=== PATIENT | male | born 1985 | race Caucasian/White ===

== ENCOUNTER 2021-08-08 17:34 | Emergency (ER) | payer OTHER ==
[2021-08-08 18:27] LABS: HEMOGLOBIN 13.1 gm/dl (14.0-17.5); RED BLOOD COUNT 4.32 M/UL (4.20-5.50); WHITE BLOOD COUNT 15.7 K/UL (4.5-11.0)
== END 2021-08-08 20:47 | disposition expired ==
LOC: ER1 17:34 → CDU 19:11 → ER1 19:11
PROVIDERS: Emergency Medicine; Internal Medicine
DX: U07.1 COVID-19 (principal); I46.9 Cardiac arrest, cause unspecified; N17.9 Acute kidney failure, unspecified; E87.2 Acidosis
CPT/HCPCS: 36600; 70450; 71045; 80053; 80307; 81001; 82550; 82553; 82803; 82962; 83605; 83735; 83874; 84484; 85025; 87086; 92950; 93005; 94002; 94664; 96374; 96375; 99285; G0480; J0171; J2543; J3370; J7030; J7070; Q9967; U0002